=== PATIENT | female | born 1955 | race Caucasian/White ===

== ENCOUNTER 2021-03-27 09:30 | Emergency (ER) | payer BC ==
[2021-03-27] MEDS ORDERED: Sodium Chloride 0.9% 1,000 ML IV ONE (10:48)
[2021-03-27 10:56] LABS: ANION GAP 16.4 mEq/L (7-13)
[2021-03-27] MEDS ORDERED: Ondansetron 4 MG/2 ML SDV IVPUSH ONE (11:19)
--- NOTE | 2021-03-27 12:13 | CT ---
EXAMINATION: Abdomen Pelvis wo Cont SEX: Female AGE: 65 years CLINICAL HISTORY: 65 year-old 145 pound female with abdominal pain for 6 days. Rule out mechanical bowel obstruction or other abnormality this patient with abnormal renal function. Only surgery for inguinal hernia. WBC 11,000. Scan technique: Volume acquisition of data from the abdomen and pelvis obtained on emergency basis without oral or IV contrast (screening) while patient was lying supine on Siemens multi slice scanner [place], [place]. All data archived in PACS system for storage, reformatting axial/sagittal/coronal planes and screening. Interpretation: 1. Fluid and scattered air-fluid levels throughout the large intestine suggesting gastroenteritis. Normal caliber small bowel without differential air-fluid levels i.e. no indication mechanical small bowel obstruction. 2. No ventral wall hernias or incarcerated bowel. No abdominal or pelvic mass lesion. No mesenteric or retroperitoneal lymphadenopathy. Scattered atheromatous calcifications normal caliber aortoiliac vessels. No aneurysm or dissection. 3. Note: Isolated small calcification RLQ; the appendix poorly delineated and there appears to be some inflammatory "dirty" peritoneal fat in the right lower quadrant (abdomen/pelvis). Chronic appendicitis? No free air. Clinical question 4. Gallbladder, unenhanced liver, stomach (hiatus hernia), spleen and pancreas unremarkable. Normal adrenal glands and kidneys. No renal cortical mass lesion, nephrolithiasis or signs of obstructive uropathy. Normal midline uterus. 5. Lung bases clear. Normal cardiac silhouette. No pericardial or pleural effusion. CONCLUSION: Possible chronic appendicitis (see above). Unenhanced emergency CT scan abdomen/pelvis otherwise unremarkable.
[2021-03-27] MEDS ORDERED: Lactated Ringers 1,000 ML IV ONE (13:24)
--- NOTE | 2021-03-27 17:53 | EDM.PDOC ---
Scribed by Socorro Greenwood 03/27/21 1537 for Stephanie Jacob NP ED HPI GENERAL MEDICAL PROBLEM - General Chief Complaint: Abdominal Pain Stated Complaint: [id number] FOOD POISONING Time Seen by Provider: 03/27/21 10:28 Source of Information: Reports: Patient, RN, RN Notes Reviewed History Limitations: Reports: No Limitations - History of Present Illness INITIAL COMMENTS - FREE TEXT/NARRATIVE: Patient is a 65-year-old female who presents to ER with complaint of nausea, vomiting, diarrhea and abdominal distention. States approximately 6 days ago began having cramping and diarrhea 4 days ago unable to pass gas, was belching. Also began vomiting. Tried fleets and suppositories with some results. Only abdominal surgery right inguinal hernia. He was unable to keep anything down. She has low grade fever, chills, nausea, vomiting and diarrhea. No chest pain or shortness of breath. She has been vomiting 0445 bile. Onset: Gradual Duration: Getting Worse Location: Reports: Abdomen Quality: Reports: Ache Severity: Severe Improves with: Reports: None Worsens with: Reports: None Associated Symptoms: Reports: No Other Symptoms Abdominal Pain Score (Numeric/FACES): 5 - Related Data Allergies Allergy/AdvReac Type Severity Reaction Status Date / Time azithromycin Allergy Hives Verified 03/27/21 09:43 Penicillins Allergy Rash Verified 03/27/21 09:43 Home Meds: Home Meds . 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 Musculoskeletal History: Reports: None Neurological History: Reports: None Psychiatric History: Reports: Depression Endocrine/Metabolic History: Reports: None Hematologic History: Reports: None Immunologic History: Reports: None Oncologic (Cancer) History: Reports: None Dermatologic History: Reports: None - Infectious Disease History Infectious Disease History: Reports: None - Past Surgical History Head Surgeries/Procedures: Reports: None GI Surgical History: Reports: Hernia, Inguinal Social & Family History - Tobacco Use Tobacco Use Status *Q: Never Tobacco User Second Hand Smoke Exposure: No - Caffeine Use Caffeine Use: Reports: Coffee, Soda - Recreational Drug Use Recreational Drug Use: No ED ROS GENERAL - Review of Systems Review Of Systems: Comprehensive ROS is negative, except as noted in HPI. ED EXAM, GI/ABD - Physical Exam Exam: See Below Exam Limited By: No Limitations General Appearance: Mild Distress Eyes: Bilateral: Normal Appearance Ears: Normal External Exam, Normal Canal, Hearing Grossly Normal, Normal TMs Nose: Normal Inspection, Normal Mucosa, No Blood Throat/Mouth: Normal Inspection, Normal Lips, Normal Teeth, Normal Gums, Normal Oropharynx, Normal Voice, No Airway Compromise Head: Atraumatic, Normocephalic Respiratory/Chest: No Respiratory Distress, Lungs Clear, Normal Breath Sounds, No Accessory Muscle Use, Chest Non-Tender Cardiovascular: Normal Peripheral Pulses, Regular Rate, Rhythm, No Edema, No Gallop, No JVD, No Murmur, No Rub GI/Abdominal Exam: Distended (firm. Bowel sounds positive right upper quadrant and left upper quadrant. Negative for left lower quadrant and right lower quadrant. ) (Female) Exam: Deferred Rectal (Female) Exam: Deferred Back Exam: Normal Inspection, Full Range of Motion, NT Extremities: Normal Inspection, Normal Range of Motion, Non-Tender, Normal Capillary Refill, No Pedal Edema Neurological: Alert, Oriented, CN II-XII Intact, Normal Cognition, Normal Gait, Normal Reflexes, No Motor/Sensory Deficits Psychiatric: Normal Affect, Normal Mood Skin Exam: Warm, Dry, Intact, Normal Color, No Rash Lymphatic: No Adenopathy Course - Vital Signs Last Recorded V/S: Last Vital Signs Temp 97.7 F 03/27/21 15:06 Pulse 84 03/27/21 15:06 Resp 18 03/27/21 15:06 BP 127/74 03/27/21 15:06 Pulse Ox 97 03/27/21 15:06 - Orders/Labs/Meds Labs: Laboratory Tests 03/27/21 03/27/21 Range/Units 09:46 09:46 WBC 11.9 H (5.0-10.0) 10^3/uL RBC 5.00 (4.2-5.4) 10^6/uL Hgb 14.7 (12.0-16.0) g/dL Hct 43.6 (37.0-47.0) % MCV 87.2 (80-100) fL MCH 29.4 (27.0-34.0) pg MCHC 33.7 (33.0-35.0) g/dL Plt Count 380 (150-450) 10^3/uL Neut % (Auto) 86.3 H (42.2-75.2) % Lymph % (Auto) 7.5 L (20.5-50.1) % [place] % (Auto) 5.7 (2-8) % Eos % (Auto) 0.3 L (1.0-3.0) % Baso % (Auto) 0.2 (0.0-1.0) % Sodium 138 (136-145) mmol/L Potassium 3.4 L (3.5-5.1) mmol/L Chloride 98 (98-107) mmol/L Carbon Dioxide 27 (21-32) mmol/L Anion Gap 16.4 H (7-13) mEq/L BUN 18 (7-18) mg/dL Creatinine 1.16 H (0.55-1.02) mg/dL Est Cr Clr Drug Dosing 39.26 mL/min Estimated GFR (MDRD) 47 BUN/Creatinine Ratio 15.5 (No establ ref range) Glucose 129 H (70-99) mg/dL Calcium 9.2 (8.5-10.1) mg/dL Total Bilirubin 0.8 (0.2-1.0) mg/dL AST 11 L (15-37) U/L ALT 19 (14-59) U/L Alkaline Phosphatase 74 (46-116) U/L C-Reactive Protein 26.5 H (0.0-0.9) mg/dL Total Protein 7.7 (6.4-8.2) g/dL Albumin 3.1 L (3.4-5.0) g/dL Globulin 4.6 Albumin/Globulin Ratio 0.67 Meds: Medications Discontinued Medications Generic Name Dose Route Start Last Admin Trade Name Freq PRN Reason Stop Dose Admin Sodium Chloride 1,000 mls @ 999 mls/hr 03/27/21 10:48 03/27/21 11:04 Normal Saline IV 03/27/21 11:48 999 mls/hr .BOLUS ONE Administration Lactated Ringer's 1,000 mls @ 200 mls/hr 03/27/21 13:24 03/27/21 13:33 Ringers, Lactated IV 03/27/21 18:23 200 mls/hr CONTINUOUS ONE Administration Ondansetron HCl 4 mg 03/27/21 11:19 03/27/21 11:23 Ondansetron 4 Mg/2 Ml Sdv IVPUSH 03/27/21 11:20 4 mg ONETIME ONE Administration - Radiology Interpretation Free Text/Narrative:: CT Abdomen/Pelvis wo contrast: Possible chronic appendicitis, unenhanced emergency CT scan abdomen/pelvis otherwise on remarkable. Gastroenteritis See rad report - Re-Assessments/Exams Free Text/Narrative Re-Assessment/Exam: 03/27/21 17:52 Discussed patient case with Dr. Al who looked at the CT images that were sent in PACS. He states that he would see the patient in the ER at [facility] and evaluate her at that time. Departure - Departure Time of Disposition: 15:34 Disposition: DC/Tfer to Acute Hospital 02 Condition: Fair Clinical Impression: Gastroenteritis Abdominal pain Qualifiers: Abdominal location: lower abdomen, unspecified Qualified Code(s): R10.30 - Lower abdominal pain, unspecified - Discharge Information *PRESCRIPTION DRUG MONITORING PROGRAM REVIEWED*: No *COPY OF PRESCRIPTION DRUG MONITORING REPORT IN PATIENT SMITH: No Forms: ED Department Discharge, Interfacility Transfer EMTALA, ED Return to Work/School Form Additional Instructions: Present to [facility] ER Sepsis Event Note (ED) - Evaluation Sepsis Screening Result: No Definite Risk - Focused Exam Vital Signs: Vital Signs Temp Pulse Resp BP Pulse Ox 03/27/21 15:06 97.7 F 84 18 127/74 97 03/27/21 09:34 96.8 F L 110 H 18 123/78 94 L I have read and agree with the documentation that has been completed regarding this visit. By signing this record, I attest that the documentation was completed in my physical presence and is an accurate record of the encounter.
== END 2021-03-27 15:45 ==
LOC: DL.ED 09:30
DX: K52.9 Noninfective gastroenteritis and colitis, unspecified (principal)
CPT/HCPCS: 36415; 74176; 80053; 85025; 86140; 96374; 99285; J2405; J7030; J7120; 99284